=== PATIENT | female | born 1930 | race Caucasian/White ===

== ENCOUNTER → 2021-03-18 | Outpatient (CLI) | payer MEDICARE ==
[2014-02-05 15:59] VITALS: BP 114/62
[~2021-03-18] MED LIST: ACET-1871 PO; ACET325T9 PO; CELE200C PO; ESTR0.5T PO; FERR325T58 PO; HYDR-2679 PO; LEVO-101 PO; MULT-18 PO; MULT-245 PO; WARF-31 PO; WARF5TAB2 PO
--- NOTE | 2021-03-18 13:23 | KCIC ---
EXAMINATION: Magnetic resonance imaging (MRI) of the lumbar spine without contrast 03/18/2021 11:05 AM HISTORY: Degenerative disc disease, low back pain TECHNIQUE: Multiplanar multi-weighted MRI of the lumbar spine was performed without intravenous contr ast using the standard lumbar spine protocol. Contrast information: None administered. COMPARISON: MRI lumbar spine 05/10/2016 FINDINGS: There is 4 mm anterolisthesis of L2 on L3, 4 mm anterolisthesis of L3 on L4 and 5 mm anterolisthesis of L4 on L5. There is a superior endplate compression fracture with associated edema localized to the superior endplates at L2 with 25% height loss. There is no significant retropulsion. No compressive epidural hematoma. No disruption of the posterior ligamentous complex. Conus medullaris terminates at T12-L1. Distal spinal cord signal intensity is normal in all sequences. There is minimal retrolisthe sis of T11 on T12. There is no prevertebral edema. No paraspinous soft tissue abnormality. Kidneys ar e normal as visualized. No suspicious retroperitoneal abnormality. Visualized sacrum is intact. T11-T12: There is a circumferential disc bulge. No significant facet arthropathy. No neuroforaminal o r spinal canal stenosis. T12-L1: Disc is normal in configuration. Mild facet arthropathy. No neuroforaminal or spinal canal st enosis. L1-L2: There is a circumferential disc bulge. Moderate facet arthropathy. Moderate to severe left and moderate right neuroforaminal stenosis. Mild spinal canal stenosis. L2-L3: There is a circumferential disc bulge. There is severe facet arthropathy which is progressed. Moderate bilateral neuroforaminal stenosis. Moderate spinal canal stenosis appears similar. L3-L4: Circumferential disc bulge asymmetric to the left. Severe facet arthropathy, not significantly changed. Mild to moderate bilateral neuroforaminal stenosis. Mild spinal canal stenosis, similar to prior examination. There is narrowing the lateral recess bilaterally secondary facet arthropathy. Fin dings are similar to prior evaluation. L4-L5: There is a circumferential disc bulge with retraction of the disc secondary to the prior exami nation. There is severe facet arthropathy. Moderate bilateral neuroforaminal stenosis, smoker prior e xamination. There is improved mild spinal canal stenosis. L5-S1: Circumferential disc bulge appears unchanged. Left foraminal annular fissure. No neuroforamina l or spinal canal stenosis. Mild facet arthropathy unchanged. IMPRESSION: 1. Superior endplate compression fracture at L2 appears acute to subacute with 25% height loss. No si gnificant retropulsion or compressive epidural hematoma. No disruption of posterior ligamentous compl ex. 2. Moderate degenerative changes of the lumbar spine as described in detail above. FOR INTERNAL CODING PURPOSES Critical result: After unsuccessful attempt to reach the provider, detailed findings provided in a voice message to [facility] office of JAG Pacheco at 03/18/2021 1:16 PM. RESULT CODE: (C) Electronically signed by: Felicita Campos MD (03/18/2021 1:21 PM) [id number]
== END ==
LOC: KCIC MRI 10:40
PROVIDERS: ATTEND Physician Assistant
DX: M47.816 Spondylosis without myelopathy or radiculopathy, lumbar region (principal); M47.815 Spondylosis without myelopathy or radiculopathy, thoracolumbar region; M51.36 Other intervertebral disc degeneration, lumbar region; M43.16 Spondylolisthesis, lumbar region; S32.020A Wedge compression fracture of second lumbar vertebra, initial encounter for closed fracture; X58.XXXA Exposure to other specified factors, initial encounter; Y93.89 Activity, other specified; Y92.89 Other specified places as the place of occurrence of the external cause; Y99.8 Other external cause status
CPT/HCPCS: 72148

== ENCOUNTER → 2021-03-29 | Outpatient (CLI) | payer MEDICARE ==
[2014-02-05 15:59] VITALS: BP 114/62
[~2021-03-29] MED LIST changes: +IOHEXOL 180 MG/ML 10 ML VIAL. ONE; +methylPREDNISolone ACETATE 40 MG/ML VIAL. ONE; +methylPREDNISolone ACETATE 80 MG/ML VIAL. ONE
--- NOTE | 2021-03-29 16:42 | PDOC4 ---
Procedure Note: Procedure Note: Patient was consented for lumbar epidural steroid injection. Risks were discussed including but not limited to: Bleeding, infection, possibility of epidural hematoma and subsequent neurological compromise, dural puncture, headaches, spinal cord and/or nerve damage, side effects of steroid medication, and poor results regarding pain control. Patient understands and wished to proceed. Procedure is lumbar epidural steroid injection under local anesthetic using sterile prep and drape at the L3-4 level using C-arm fluoroscopic guidance in both AP and lateral views medications injected is 120 mg Depo-Medrol +10mL preservative-free normal saline and 2 mL contrast- condition at discharge is stable patient tolerated procedure well had no complications. ALICIA THEODORE MD Mar 29, 2021 16:42
--- NOTE | 2021-03-29 16:42 | PDOC1 ---
INITIAL PAIN CONSULT DATE OF SERVICE: DOS: DATE: 03/29/21 TIME: 16:35 CHIEF COMPLAINT: Chief Complaint: Low back and left lower extremity pain HISTORY OF PRESENT ILLNESS: 89-year-old female presents history of pain low back left lower extremity for about 1 year the result of any specific injury or accident that she is aware of is getting worse over the year the low back rating the left lower extremity posterior gluteus anterior thigh anterior medial thigh medial groin into the anterior thigh to the knee on the left side patient reports this is worse with walking standing changing positions better with sitting or laying down generally does not awaken her from sleep at night to relieve it when she sits even for about 5 minutes or so patient reports that standing walking changing positions however and bending forward is beginning to exacerbate the pain significantly patient reports she has had physical therapy in the past and is currently doing some exercises and stretching strengthening on her own but no formal therapy at this time patient is taking methocarbamol as well as hydrocodone and prednisone all of which do decrease the pain but only moderately patient reports it is a constant pain low back radiating shooting in the left lower extremity that can be cramping aching as well as radiating in the left leg. Patient did have an MRI scan lumbar spine dated March 18, 2021 showing endplate compression fracture at L2 appear to be subacute with 25% height loss no significant retropulsion or compressive epidural hematoma no disruption of posterior ligamentous complex motor degenerative change of lumbar spine L3-4 circumferential disc bulge asymmetric to the left with severe facet arthropathy mild to moderate bilateral neuroforaminal stenosis narrowing lateral recesses bilaterally secondary to fa cet arthropathy prior similar to his examination. L4-5 shows circumferential disc bulge with moderate bilateral neuroforaminal stenosis L5-S1 so circumferential disc bulge unchanged with no neuroforaminal or spinal canal stenosis. Patient rates her disability of 0-10 10 being worst is a 2 with ambulation as well as recreation of 7 with self-care activities. PAST MEDICAL HISTORY: PMH: Arthritis, glaucoma, hearing loss PREVIOUS SURGERIES: Past Surgical Hx: Hysterectomy, right knee replacement CURRENT MEDICATIONS: Current Meds: Active Scripts Medications Dose Route/Sig Max Daily Dose Days Date Category Dose Instructions Multi Vitamin Daily (Multivitamin) 1 Each Tablet 1 Each PO DAILY 07/28/16 Reported Acetaminophen Ext.release (Acetaminophen) 650 Mg Tablet.er 650 Mg PO PRN Q8HRS PRN 07/28/16 Reported Celebrex (Celecoxib) 200 Mg Capsule 200 Mg PO DAILY 01/23/14 Reported last dose was this am restart in the morning Synthroid (Levothyroxine Sodium) 100 Mcg Tablet 100 Mcg PO DAILY 01/23/14 Reported last given this am at 0600 Estradiol 0.5 Mg Tablet 0.5 Mg PO DAILY 01/23/14 Reported last dose was this am retart in the am ALLERGIES; Allergies: Coded Allergies: oxybutynin (Verified Allergy, Severe, 02/02/14) "GAVE ME POTASSIUM PROBLEMS" diphenhydramine (Verified Allergy, Unknown, 07/28/16) hives FAMILY HISTORY: Family Hx: No major medical problems or conditions that she is aware of SOCIAL HISTORY: Social Hx: Patient does not smoke not drink alcohol does not use any illegal illicit recreational drugs is lives locally in [facility] and is currently retired. REVIEW OF SYSTEMS: ROS: Positive for those items mentioned in history of present illness, all systems are reviewed, otherwise negative ,and are complete full and well-documented on patient's chart. PHYSICAL EXAM: VS: Blood pressure is 145/80 pulse 72 respirations are 18 temperature is 98.2 F height is 5 feet 2 inches, weight is deferred by her request, as patient is in wheelchair. PE: PHYSICAL EXAMINATION: GENERAL: The patient is awake, alert, oriented, appropriate, very pleasant in demeanor, patient companied by her daughter. HEENT: Shows normocephalic, atraumatic. Extraocular movements are intact and symmetrical. Oral cavity: Mucous membranes moist and pink. NECK: Shows anterior throat supple without palpable lymphadenopathy noted. Swallow reflex symmetrical. CHEST: Shows normal on inspection. Breath sounds are clear bilaterally, distant but no rales or rhonchi. HEART: Shows S1, S2 clear. No murmurs auscultated. ABDOMEN: Soft, nontender, nondistended, obese. No palpable organomegaly is noted. BACK: Shows spine grossly in the midline. Normal-appearing cervical lordotic curvature. There is slightly increased thoracic kyphosis, some minor flattening of the lumbar lordotic curvature. Lumbar paraspinous muscles show symmetrical on inspection, on palpation shows some moderate tenderness diffusely throughout the upper, middle and lower distribution of the paraspinous muscles without specific trigger points, without radiation of pain. The patient has good rotational motion of the lumbar spine, both laterally as well as extension and flexion without significant difficulty. No tenderness over the spinous processes, sacrum or sacroiliac regions. EXTREMITIES: Lower extremities show deep tendon reflexes 1+ in the patellar and tendo calcaneus tendons. Motor exam is 5 on a scale of 5 with right dorsiflexion, extension, quadriceps and hamstring flexion and 4/5 on the left. Peripheral pulses are 1 posterior tibial. No peripheral edema is noted bilaterally. Lower extremities are warm and dry to touch, equal in color and appearance. Straight leg raise noted to be negative on the right and positive on the left at approximately 40 degrees with decreased with knee flexion. Gaenslen's and Hunter's nerves are negative bilaterally.The patient is able to stand but needs much assistance getting up out of her wheelchair walks with a very shuffling cautious gait. SKIN: Shows warm and dry, good turgor. No edema. No sores, rashes or bruising throughout. IMPRESSION: Impression: 89-year-old female with approximate 1 year history of low back right lower extremity pain and radicular fashion. MRI scan lumbar spine as noted. Arthritis nex Plan: Options were discussed with the patient including conservative medical management physical therapies interventional techniques. Patient would like to pursue interventional techniques. We discussed a lumbar epidural steroid injection using description as well as anatomical models to describe the procedure. Risks were discussed including but not limited to: Bleeding, infection, possibility of epidural hematoma and subsequent neurological com promise, dural puncture, headaches, spinal cord and/or nerve damage, side effects of steroid medication, and poor results regarding pain control. Patient understands and wished to proceed. She will return to the clinic in approximately 2 weeks for follow-up, was counseled as to return appointment active level and side effects to be aware of. Procedure is lumbar epidural steroid injection under local anesthetic using sterile prep and drape at the L3-4 level using C-arm fluoroscopic guidance in both AP and lateral views medications injected is 120 mg Depo-Medrol +10mL preservative-free normal saline and 2 mL contrast- condition at discharge is stable patient tolerated procedure well had no complications. ALICIA THEODORE MD Mar 29, 2021 16:42
== END | disposition home or self-care (01) ==
LOC: PNCL 12:51
PROVIDERS: ATTEND Anesthesiology
DX: M54.5 Low back pain (principal); M79.605 Pain in left leg; M19.90 Unspecified osteoarthritis, unspecified site; M81.0 Age-related osteoporosis without current pathological fracture; E03.9 Hypothyroidism, unspecified; Z90.710 Acquired absence of both cervix and uterus; Z98.890 Other specified postprocedural states; Z79.899 Other long term (current) drug therapy; Z88.8 Allergy status to other drugs, medicaments and biological substances
CPT/HCPCS: 62323; J1030; J1040; Q9965